=== PATIENT | male | born 1945 | race Two or more races ===

== ENCOUNTER 2019-06-04 17:54 | Emergency (ER) | payer BC, OTHER ==
[2019-06-04 18:22] VITALS: BP 127/65; PULSE 77; TEMP 97.5; BMI 32.4
--- NOTE | 2019-06-04 18:48 | PDOC ---
History of Present Illness - General Chief Complaint: Injury Stated Complaint: RIGHT EYE AREA INJURY, RT LOWER LEG PAIN Time Seen by Provider: 06/04/19 18:17 - History of Present Illness Initial Comments: 06/04/19 18:44 Chief complaint: Pain and swelling right eye HPI: Patient [place] and [place] earlier [place], struck the right side of his face on the ground. He was wearing glasses, and lower edge of the glasses impacted his right inferior orbit. He has bruising and swelling. Review of systems: Denies blurred vision, denies double vision, denies numbness or tingling of his cheek. Denies injury to his head or headache. Denies new neck pain or neck injury. However, he has chronic neck pain due to cervical disease and surgery, but this is unchanged. Denies chest pain, shortness of breath, abdominal pain, pelvic or spine pain, nausea, vomiting, diarrhea, focal neurologic symptoms, unsteadiness of gait. Denies pain or injury to the upper or lower extremities. Admits recent swelling and erythema of his right calf. There is a history of right calf cellulitis, which seems to be resolved. Past medical history: Significant for stage IV colon cancer. No known DVT or PE. High blood pressure, [id number] diabetes on metformin, on baby aspirin prophylaxis. Also on iron and fluorouracil chemotherapy. Social history: No tobacco alcohol or drugs. Ambulatory, active, without significant disability. Stable home and family Family history: Reviewed and noncontributory including early coronary artery disease, metabolic diseases include including diabetes, and cancer, as well as coagulopathies, hematologic disorders, and blood clots. Physical exam: Alert and oriented well-developed well-nourished no acute distress cheerful and cooperative Afebrile, vital signs normal Head atraumatic. There is no evidence of abrasion, laceration, contusion, ecchymosis, or hematoma of the scalp and no depressions or defects palpable. PERRLA 4 mm, fundi benign with sharp disc margins and good central venous pulsations, no hemorrhages or exudates. EOMs are full without diplopia. Visual wells intact to confrontation. There is no sensory deficit V2. Tenderness and swelling of the lower orbital rim with ecchymoses but no palpable deformity or crepitus. ENT clear. Neck without tenderness or deformity, full range of motion without significant pain Chest clear to PNA, full breath sounds bilaterally, no rib cage or chest wall tenderness or deformity CV S1-S2 normal without murmur rub or gallop pulses symmetric and full, no JVD or edema, no bruits, 80 and regular Abdomen nondistended, bowel sounds normal, soft without mass tenderness organomegaly. No CVAT Neurological C2 to 12 intact. Strength full and symmetric. No focal sensorimotor deficits. Gait stable and unimpaired Extremities: The right calf is swollen to a much greater extent than the left, there is mild erythema, and there is edema to the knee. There is no tenderness over the posterior calf and no cords or palpable masses. Impression: Orbital injury, does not appear to be serious, but rule out occult orbital rim fracture. Rule out right lower extremity DVT. Plan: Head and facial CTs, venous Doppler of the right calf, and further evaluation and treatment depending on results. Past History - Past Medical History Allergies/Adverse Reactions: Allergies Allergy/AdvReac Type Severity Reaction Status Date / Time No Known Drug Allergies Allergy Verified 06/04/19 17:57 Home Medications: Ambulatory Orders 5fu 06/04/19 Aspirin [Aspirin EC] 81 mg PO DAILY 06/04/19 Cholecalciferol (Vitamin D3) [Vitamin D3] 2,000 unit PO DAILY 06/04/19 Cyanocobalamin [Vitamin B12 -] 1,000 mcg PO DAILY 06/04/19 Ferrous Sulfate 325 mg PO BID 06/04/19 Fluorouracil gm IV ASDIR 06/04/19 Metformin HCl [Glucophage] 1,000 mg PO AM 06/04/19 Metformin HCl [Glucophage] 500 mg PO HS 06/04/19 Metoprolol Succinate [Toprol Xl] 12.5 mg PO ASDIR 06/04/19 Multivitamin [One-Daily Multi-Vitamin] 1 each PO DAILY 06/04/19 Oxaliplatin mg IV ASDIR 06/04/19 Polyethylene Glycol 3350 [Miralax (For Daily Use) -] 17 gm PO DAILY 06/04/19 Tamsulosin HCl [Flomax] 0.4 mg PO HS 06/04/19 Cancer: Yes (COLON CANCER) Cardiac Disorders: Yes (CARDIAC STENTS) COPD: No Diabetes: Yes Disorders: Yes (PORSTATE ISSUES) Other medical history: BILATERAL ARTHRITIC KNEE - Psycho Social/Smoking Cessation Hx Smoking History: Never smoked Have you smoked in the past 12 months: No Information on smoking cessation initiated: No Hx Alcohol Use: (rarely) *Physical Exam - Vital Signs Last Vital Signs Temp Pulse Resp BP Pulse Ox 97.5 F L 77 18 127/65 96 06/04/19 17:54 06/04/19 17:54 06/04/19 17:54 06/04/19 17:54 06/04/19 17:54 ED Treatment Course - RADIOLOGY Radiology Studies Ordered: Category Date Time Status HEAD CT WITHOUT CONTRAST [CT] Stat CT Scan 06/04/19 18:[address] W/O CONTRAST [CT] Stat CT Scan 06/04/19 18:18 Ordered DUPLEX VASCUL US-1 LEG [US] Stat Ultrasound 06/04/19 18:29 Ordered Medical Decision Making - Medical Decision Making 06/05/19 08:30 CT of the head and orbit are pending. Duplex study of the right leg is pending Patient is stable. Signed out to Dr. Harris at 7 PM pending results and further medical evaluation and treatment. Discharge - Discharge Information Problems reviewed: Yes Clinical Impression/Diagnosis: Head trauma Qualifiers: Encounter type: initial encounter Qualified Code(s): S09.90XA - Unspecified injury of head, initial encounter Bakers cyst Qualifiers: Laterality: right Qualified Code(s): M71.21 - Synovial cyst of popliteal space [Ambriz], right knee Condition: Stable Disposition: HOME - Follow up/Referral - Patient Discharge Instructions Patient Printed Discharge Instructions: DI for Post-traumatic Headache, Closed Head Injury Additional Instructions: Mr. Patel Thank you for coming in to the ER today Please be sure to follow up with your Primary Care physician as needed Please take tylenol for pain Return to the ER for any other concerns or complaints - Post Discharge Activity
--- NOTE | 2019-06-04 20:23 | PDOC ---
*Physical Exam - Vital Signs Last Vital Signs Temp Pulse Resp BP Pulse Ox 97.5 F L 77 18 127/65 96 06/04/19 17:54 06/04/19 17:54 06/04/19 17:54 06/04/19 17:54 06/04/19 17:54 Medical Decision Making - Medical Decision Making 06/04/19 20:20 I received my Jorge on sign out Briefly, he is a 73 yo M with a history of cancer S/p trauma to the face He was incidentally noted to have swelling of the right lower extremity he is pending CTs and Duplex CT head:no acute intracranial pathology CT orbits: no fracture of the orbital bones, right eryn-orbital soft tissue edema Duplex: Bakers cyst, no DVT noted 06/04/19 20:38 Will discharge to home Will ask pt to follow up with PMD Discharge - Discharge Information Problems reviewed: Yes Clinical Impression/Diagnosis: Head trauma Qualifiers: Encounter type: initial encounter Qualified Code(s): S09.90XA - Unspecified injury of head, initial encounter Bakers cyst Qualifiers: Laterality: right Qualified Code(s): M71.21 - Synovial cyst of popliteal space [Ambriz], right knee Condition: Stable Disposition: HOME - Admission No - Follow up/Referral - Patient Discharge Instructions Patient Printed Discharge Instructions: DI for Post-traumatic Headache, Closed Head Injury Additional Instructions: Mr. Patel Thank you for coming in to the ER today Please be sure to follow up with your Primary Care physician as needed Please take tylenol for pain Return to the ER for any other concerns or complaints - Post Discharge Activity
== END 2019-06-04 20:59 | disposition home or self-care (01) ==
LOC: FER 17:54
DX: S09.90XA Unspecified injury of head, initial encounter (principal); M71.21 Synovial cyst of popliteal space [Baker], right knee; W10.8XXA Fall (on) (from) other stairs and steps, initial encounter; Y93.89 Activity, other specified; Y92.89 Other specified places as the place of occurrence of the external cause
CPT/HCPCS: 70450-TC; 70480-TC; 93971-TC; 99283-25